=== PATIENT | male | born 1955 | race Caucasian/White ===

== ENCOUNTER 2018-06-17 16:12 | Emergency (ER) | payer OTHER, SELFPAY ==
[2018-06-17 16:18] VITALS: BP 128/75; PULSE 77; RESP 20; TEMP 37.4; O2SAT 99; BMI 26.9
--- NOTE | 2018-06-17 18:56 | DI.RAD.S_ITS ---
PROCEDURE: XR ACUTE ABDOMEN SERIES INDICATIONS: Abdominal pain, no BM x4 days, s/p hip sx TECHNIQUE: One view chest and two views of the abdomen were acquired. COMPARISON: [facility], , CHEST 2 VIEW, 08/17/2015, 14:50. FINDINGS: Surgical changes and devices: There is a hip prosthesis partially visualized. Chest: Lungs are clear. Heart size is normal. No pleural effusions. No pneumoperitoneum. Abdomen: Bowel gas pattern is within normal limits with intraluminal gas demonstrated in the small and large bowel. There is mild stool distention in the rectum. No suspicious calcifications. Bones: No suspicious bony lesions. IMPRESSION: 1. No definite evidence of bowel obstruction. 2. Mild stool distention in the rectum may reflect mild impaction or constipation. Dictated by: Madhu Lezama M.D. on 06/17/2018 at 19:38 Approved by: Madhu Lezama M.D. on 06/17/2018 at 19:40
[2018-06-17 20:02] LABS: Add Manual Diff / Slide Review NO; Basophils Percent Auto 0.3 % (0-2); Eosinophils Percent Auto 0.3 % (2-4); Hematocrit 31.7 % (41-53); Hemoglobin 10.9 g/dL (13.5-17.5); Lymphocytes Percent Auto 8.5 % (25-40); Mean Corpuscular HGB Conc 34.3 % (30-36); Mean Corpuscular Hemoglobin 31.3 PG (26-34); Mean Corpuscular Volume 91.2 fL (80-100); Monocytes Percent Auto 9.6 % (3-14); Neutrophils Absolute Auto 8700 /uL (3000-5900); Neutrophils Percent Auto 81.3 % (50-75); Platelet Count 260 X10^3/uL (150-400); Red Blood Cell Count 3.48 X10^6/uL (4.5-5.9); White Blood Cell Count 10.6 X10^3/uL (4.5-11.0)
[2018-06-17] MEDS: SODIUM CHLORIDE 0.9% 1,000 ML 1000 ML IV (20:03)
[2018-06-17] MEDS: ACETAMINOPHEN 325 MG TABLET 650 MG PO (20:04)
[2018-06-17 20:15] LABS: BUN Creatinine Ratio 12.9 (6-22); Blood Urea Nitrogen 9 mg/dL (9-20); Calcium 8.9 mg/dL (8.4-10.2); Carbon Dioxide 29 mmol/L (22-32); Chloride 98 mmol/L (98-107); Estimated Glomerular Filt Rate > 60.0 mL/min (>60); Glucose 119 mg/dL (80-110); HEMOLYSIS < 15 (0-50); Potassium 3.9 mmol/L (3.4-5.1); Sodium 133 mmol/L (137-145)
--- NOTE | 2018-06-17 20:18 | ED_ITS ---
HPI - Abdominal Pain General Chief Complaint: Abdominal Pain Stated Complaint: SEVERE ABD PAIN Time Seen by Provider: 06/17/18 18:02 Source: patient and family Mode of arrival: ambulatory Limitations: no limitations History of Present Illness HPI narrative: 63-year-old male presents to the emergency department with multiple family members in the chief complaint of significant discomfort in his abdomen. He had surgery on his right hip a few days ago and has not had a normal bowel movement since discharge. He did pass some very small hard stool today after taking some [id number]-[id number] Ex-Lax. He admits to taking pain medicine and denies the use of any laxatives at home in an ongoing fashion. He has had some nausea but denies any vomiting. He denies any fever or chills. MD complaint: abdominal pain Onset (ago): day(s) Pain Consistency: constant Location: diffuse Severity: severe Quality: cramping and aching Radiation: none Migration to: no migration Relieving factors: nothing Exacerbating factors: nothing Associated symptoms: nausea Treatments prior to arrival: prescription analgesics Related Data Home Medications Medication Instructions Recorded Confirmed aspirin 81 mg tablet,delayed 81 mg PO DAILY 03/23/18 03/23/18 release Allergies Allergy/AdvReac Type Severity Reaction Status Date / Time No Known Drug Allergies Allergy Verified 03/23/18 08:15 Review of Systems Review of Systems All systems reviewed & are unremarkable except as noted in HPI and below Constitutional Denies chills, Denies fever(s), Denies lethargy and Denies weakness Eyes Denies change in vision, Denies eye discharge, Denies irritation and Denies loss of vision ENT Ears, Nose, Mouth, and Throat: Denies change in voice, Denies neck pain and Denies sore throat Cardiovascular Denies chest pain, Denies irregular heart rhythm, Denies lightheadedness, Denies palpitations, Denies dyspnea, Denies dyspnea on exertion and Denies orthopnea Respiratory Denies cough, Denies dyspnea, Denies dyspnea on exertion and Denies wheezing Gastrointestinal Gastrointestinal: Reports abdominal pain, Denies change in bowel habits, Denies diarrhea, Reports nausea and Denies vomiting Genitourinary Denies hematuria, Denies flank pain, Denies urinary incontinence and Denies urinary urgency Musculoskeletal Denies neck pain Integumentary/Breasts Denies pruritus, Denies erythema, Denies rash and Denies wounds Neurologic Denies confusion, Denies loss of vision and Denies weakness Psychiatric Denies anxiety, Denies confusion, Denies depression, Denies homicidal ideation and Denies suicidal ideation Endocrine Denies palpitations Hematologic/Lymphatic Denies easy bruising Allergic/Immunologic Denies wheezing [facility] Social History Smoking Status: Never smoker Exam Narrative Exam Narrative: 63-year-old male obviously uncomfortable, clutching his abdomen Initial Vital Signs Initial Vital Signs: Vital Signs Temperature 99.3 F 06/17/18 16:18 Pulse Rate 77 06/17/18 16:18 Respiratory Rate 20 06/17/18 16:18 Blood Pressure 128/75 H 06/17/18 16:18 Pulse Oximetry 99 06/17/18 16:18 Const General: cooperative, well developed and acute distress Nutritional Appearance: well nourished Orientation: alert, awake, oriented x3 and not confused HENMT Head: normocephalic and atraumatic Ears: external ears normal and TM's normal bilaterally Nose: external nose normal and No nasal discharge Face and sinus: sinuses nontender, face symmetric, no sinus tenderness and No dry mucous membranes Mouth: oral mucosae normal and moist mucous membranes Teeth and gingiva: dentition normal Throat: tonsils normal and uvula midline Neck Neck: normal visual inspection, trachea midline, No lymphadenopathy, No midline deformity and No JVD Lymphatic: No lymphedema Resp Effort & Inspection: normal respiratory effort, able to speak in complete sentences, no respiratory distress and no use of accessory muscles Auscultation: clear to auscultation bilaterally, no rales, no rhonchi and no wheezes Cardio Rate: regular rate Rhythm: regular rhythm Heart Sounds: no click, no gallops, no murmurs and no rubs Pulses: normal peripheral pulses GI Inspection: non-distended Palpation: soft, no hepatosplenomegaly, No guarding, No pulsatile mass and tender Auscultation: hypoactive bowel sounds Back/Spine/Pelvis Back: No CVA tenderness Cervical Spine: cervical ROM normal and No pain with cervical ROM Thoracic/Lumbar Spine: thoracic and lumbar spine normal to inspection Skin General: no rashes or lesions noted, No jaundice and No petechiae Neuro General: alert, oriented x3, gait normal and no focal motor deficits Speech: speech normal Extrem General: full ROM, no clubbing, cyanosis or edema, no pedal edema and no calf tenderness Course Orders Ordered: ED Orders 06/17/18 18:56 XR acute abdomen series Stat 06/17/18 19:52 Basic Metabolic Panel Stat Complete Blood Count AUTO DIFF Stat Discontinued Medications Acetaminophen (Tylenol) 650 mg PO NOW ONE Stop: 06/17/18 19:39 Last Admin: 06/17/18 20:04 Dose: 650 mg Sodium Chloride (Normal Saline 0.9%) 1,000 mls @ 1,000 mls/hr IV BOLUS ONE Stop: 06/17/18 20:37 Last Infusion: 06/17/18 20:39 Dose: 0 mls/hr Admin: 06/17/18 20:03 Dose: 1,000 mls/hr Reevaluation(s) Reevaluation #1: Patient has a large bowel movement after enema. He also has near complete resolution of symptoms Vital Signs - 8 hr 06/17/18 20:44 Pulse Rate 80 Respiratory Rate 20 Blood Pressure 154/81 H Pulse Oximetry 100 MDM - Abdominal Pain Lab Data Result diagrams: 06/17/18 19:52 06/17/18 19:52 Lab Results 06/17/18 06/17/18 Range/Units 19:52 19:52 WBC 10.6 (4.5-11.0) X10^3/uL RBC 3.48 L (4.5-5.9) X10^6/uL Hgb 10.9 L (13.5-17.5) g/dL Hct 31.7 L (41-53) % MCV 91.2 (80-100) fL MCH 31.3 (26-34) PG MCHC 34.3 (30-36) % RDW 14.0 (11.6-14.8) % Plt Count 260 (150-400) X10^3/uL Neut % (Auto) 81.3 H (50-75) % Lymph % (Auto) 8.5 L (25-40) % [place] % (Auto) 9.6 (3-14) % Eos % (Auto) 0.3 L (2-4) % Baso % (Auto) 0.3 (0-2) % Neut # (Auto) 8700 H (1785-4574) /uL Sodium 133 L (137-145) mmol/L Potassium 3.9 (3.4-5.1) mmol/L Chloride 98 (98-107) mmol/L Carbon Dioxide 29 (22-32) mmol/L BUN 9 (9-20) mg/dL Creatinine 0.70 (0.66-1.25) mg/dL Estimated GFR > 60.0 (>60) mL/min BUN/Creatinine Ratio 12.9 (6-22) Glucose 119 H (80-110) mg/dL Calcium 8.9 (8.4-10.2) mg/dL Discharge Plan Departure Patient Disposition: Home Clinical Impression: Constipation Discharge Date/Time: 06/17/18 20:45 Interventions: ED Discharge Assessment Last Done: 06/17/18 20:44 Instructions: DI for Constipation Activity Restrictions/Additional Instructions: *You have been diagnosed with [drug induced constipation ] *What to do: *Take medications as directed *Follow up with your primary care provider in 2-3 days, call for an appointment. Let them know you were seen in the Emergency Department and that we ask that you be seen in follow up *Return to ER if you should have any new, worsening or concerning symptoms , such as [increasing pain, fever over 101 F, persistent vomiting ] *You have been diagnosed with [ abdominal pain due to constipation ] *What to do: *Take over the counter medications as directed: 1. Magnesium Citrate - brings water into your bowel 2. Colace - softens your stool 3. Dulcolax - stiumlates your bowels *Drink plenty of water and eat foods high in fiber Prescriptions: No Action aspirin [Adult Low Dose Aspirin] 81 mg tablet,delayed release (DR/EC) 81 mg PO DAILY RF: 0
--- NOTE | 2018-06-17 20:38 | PC.NURSE ---
pt had massive bowl movement provider aware.
[2018-06-17 20:44] VITALS: BP 154/81; PULSE 80; RESP 20; O2SAT 100
== END 2018-06-17 20:45 | disposition home or self-care (01) ==
PROVIDERS: Emergency Provider Emergency Medicine; PCP Internal Medicine
DX: K59.00 Constipation, unspecified (principal)
CPT/HCPCS: 36591; 74022; 80048; 85025; 96360; 99283; 99284

== ENCOUNTER → 2018-07-16 12:55 | Outpatient (CLI) | payer OTHER, SELFPAY ==
[2018-07-16 13:30] LABS: Appearance Urine UA CLOUDY; Bilirubin Urine UA NEGATIVE (NEGATIVE); Color Urine UA YELLOW; Glucose Urine UA NEGATIVE (Normal); Ketones Urine UA NEGATIVE (NEGATIVE); Leukocyte Esterase Urine UA 1+ (NEGATIVE); Nitrite Urine UA POSITIVE (Negative); Occult Blood Urine UA 1+ (Negative); Protein Urine UA NEGATIVE (Negative); Urobilinogen Urine UA 0.2 E.U./dL (0.2)
[2018-07-16 14:40] LABS: Bacteria Urine Many (>30); RBC Urine 1-5/HPF (0-5/HPF); WBC Urine 10-30/HPF (0-5/HPF)
== END ==
PROVIDERS: PCP Internal Medicine; Visit Provider Family Medicine
DX: Z01.812 Encounter for preprocedural laboratory examination (principal)
CPT/HCPCS: 81003; 81015; 87077; 87086; 87186

== ENCOUNTER → 2018-08-20 08:43 | Outpatient (CLI) | payer OTHER, SELFPAY | PROVIDERS: Visit Provider Physician Assistant | DX: N30.01 Acute cystitis with hematuria (principal) | CPT/HCPCS: 87077; 87086; 87186 ==

== ENCOUNTER → 2018-09-12 10:42 | Outpatient (CLI) | payer OTHER, SELFPAY ==
[2018-09-12 11:05] LABS: Add Manual Diff / Slide Review NO; Basophils Percent Auto 0.7 % (0-2); Eosinophils Percent Auto 4.3 % (2-4); Hematocrit 37.4 % (41-53); Hemoglobin 12.6 g/dL (13.5-17.5); Mean Corpuscular HGB Conc 33.8 % (30-36); Mean Corpuscular Hemoglobin 29.6 PG (26-34); Mean Corpuscular Volume 87.6 fL (80-100); Monocytes Percent Auto 9.4 % (3-14); Neutrophils Absolute Auto 3900 /uL (3000-5900); Neutrophils Percent Auto 63.6 % (50-75); Platelet Count 323 X10^3/uL (150-400); Red Blood Cell Count 4.27 X10^6/uL (4.5-5.9); Red Cell Distribution Width 14.9 % (11.6-14.8); White Blood Cell Count 6.2 X10^3/uL (4.5-11.0)
[2018-09-12 11:24] LABS: Appearance Urine UA CLOUDY; Bilirubin Urine UA NEGATIVE (NEGATIVE); Color Urine UA YELLOW; Glucose Urine UA NEGATIVE (Normal); Ketones Urine UA NEGATIVE (NEGATIVE); Leukocyte Esterase Urine UA 2+ (NEGATIVE); Nitrite Urine UA POSITIVE (Negative); Occult Blood Urine UA 2+ (Negative); Protein Urine UA 1+ (Negative); Urobilinogen Urine UA 0.2 E.U./dL (0.2)
[2018-09-12 11:34] LABS: Bacteria Urine Many (>30); Culture Indicated Urine Specimen Cultured; RBC Urine 5-10/HPF (0-5/HPF); WBC Urine >100/HPF (0-5/HPF)
[2018-09-12 13:59] LABS: Thyroid Stimulating Hormone 1.13 uIU/mL (0.47-4.68)
[2018-09-12 16:23] LABS: Alanine Aminotransferase 26 IU/L (21-72); Albumin 3.9 g/dL (3.5-5.0); Albumin Globulin Ratio 1.4 (1.0-2.8); Alkaline Phosphatase 55 U/L (38-126); Aspartate Aminotransferase 23 IU/L (17-59); BUN Creatinine Ratio 18.8 (6-22); Bilirubin Total 0.3 mg/dL (0.2-1.3); Blood Urea Nitrogen 15 mg/dL (9-20); Calcium 8.9 mg/dL (8.4-10.2); Carbon Dioxide 28 mmol/L (22-32); Chloride 101 mmol/L (98-107); Cholesterol 184 mg/dL (140-199); Estimated Glomerular Filt Rate > 60.0 mL/min (>60); Globulin 2.7 g/dL (1.7-4.1); Glucose 95 mg/dL (80-110); HDL Cholesterol 65 mg/dL (40-60); HEMOLYSIS < 15 (0-50); LDL Cholesterol Calculated 109 mg/dL (<100); Potassium 4.7 mmol/L (3.4-5.1); Sodium 139 mmol/L (137-145); Total Protein 6.6 g/dL (6.3-8.2); Triglycerides 51 mg/dL (35-150)
== END ==
PROVIDERS: PCP Family Medicine; Visit Provider Family Medicine
DX: Z00.00 Encounter for general adult medical examination without abnormal findings (principal); Z13.220 Encounter for screening for lipoid disorders; Z13.29 Encounter for screening for other suspected endocrine disorder
CPT/HCPCS: 36415; 80053; 80061; 81003; 81015; 84443; 85025; 87077; 87086; 87186

== ENCOUNTER → 2019-02-18 08:01 | Outpatient (CLI) | payer OTHER, SELFPAY ==
--- NOTE | 2019-02-18 08:03 | DI.RAD.S_ITS ---
PROCEDURE: XR CHEST 2V INDICATIONS: cough TECHNIQUE: 2 views of the chest were acquired. COMPARISON: [facility], , CHEST 2 VIEW, 08/17/2015, 14:50. FINDINGS: Surgical changes and devices: None. Lungs and pleura: Lungs are clear. No pleural effusions or pneumothorax. Mediastinum: Mediastinal contours are normal. Heart size is normal. Bones and chest wall: No suspicious bony abnormalities. Soft tissues appear unremarkable. IMPRESSION: No acute cardiopulmonary pathology. Dictated by: Edgar Vega M.D. on 02/18/2019 at 9:24 Approved by: Edgar Vega M.D. on 02/18/2019 at 9:24
== END ==
PROVIDERS: PCP Family Medicine; Visit Provider Physician Assistant
DX: R05 Cough (principal)
CPT/HCPCS: 71046

== ENCOUNTER → 2020-08-17 09:35 | Outpatient (CLI) | payer MEDICARE, SELFPAY ==
[2020-08-17 10:11] LABS: Add Manual Diff / Slide Review NO; Basophils Absolute Auto 0 /uL (0-100); Eosinophils Absolute Auto 200 /uL (0-450); Eosinophils Percent Auto 6.3 % (2-4); Hematocrit 40.1 % (41-53); Hemoglobin 13.8 g/dL (13.5-17.5); Lymphocytes Absolute Auto 1200 /uL (1100-4500); Lymphocytes Percent Auto 33.3 % (25-40); Mean Corpuscular HGB Conc 34.5 % (30-36); Mean Corpuscular Hemoglobin 31.6 PG (26-34); Mean Corpuscular Volume 91.7 fL (80-100); Monocytes Absolute Auto 300 /uL (0-900); Monocytes Percent Auto 9.8 % (3-14); Neutrophils Absolute Auto 1800 /uL (1500-7000); Neutrophils Percent Auto 49.6 % (50-75); Platelet Count 256 X10^3/uL (150-400); Red Blood Cell Count 4.37 X10^6/uL (4.5-5.9); Red Cell Distribution Width 13.8 % (11.6-14.8); White Blood Cell Count 3.6 X10^3/uL (4.5-11.0)
[2020-08-17 10:28] LABS: Alanine Aminotransferase 21 IU/L (<50); Albumin 4.1 g/dL (3.5-5.0); Albumin Globulin Ratio 1.5 (1.0-2.8); Alkaline Phosphatase 46 U/L (38-126); Aspartate Aminotransferase 31 IU/L (17-59); BUN Creatinine Ratio 23.5 (6-22); Bilirubin Total 0.9 mg/dL (0.2-1.3); Blood Urea Nitrogen 16 mg/dL (9-20); Calcium 8.8 mg/dL (8.4-10.2); Carbon Dioxide 29 mmol/L (22-32); Chloride 103 mmol/L (98-107); Cholesterol 211 mg/dL (140-199); Estimated Glomerular Filt Rate > 60.0 mL/min (>60); Globulin 2.8 g/dL (1.7-4.1); Glucose 106 mg/dL (80-110); HDL Cholesterol 69 mg/dL (40-60); HEMOLYSIS < 15 (0-50); LDL Cholesterol Calculated 129 mg/dL (<100); Potassium 4.4 mmol/L (3.4-5.1); Sodium 135 mmol/L (137-145); Total Protein 6.9 g/dL (6.3-8.2); Triglycerides 65 mg/dL (35-150)
[2020-08-17 10:54] LABS: Prostate Specific Antigen 0.109 ng/mL (0.10-4.00)
== END ==
PROVIDERS: PCP Internal Medicine; Referring Provider Internal Medicine; Visit Provider Internal Medicine
DX: E78.2 Mixed hyperlipidemia (principal); R03.0 Elevated blood-pressure reading, without diagnosis of hypertension; D70.9 Neutropenia, unspecified; Z12.5 Encounter for screening for malignant neoplasm of prostate
CPT/HCPCS: 36415; 80053; 80061; 84153; 85025; G0103

== ENCOUNTER → 2020-11-13 12:36 | Outpatient (CLI) | payer MEDICARE, SELFPAY ==
[2020-11-13] MEDS: COVID-19 VACC(MODERNA-1)/PF 100 MCG/0.5 ML VIAL IM (12:42)
== END ==
PROVIDERS: PCP Internal Medicine; Visit Provider Internal Medicine
DX: Z23 Encounter for immunization (principal)
CPT/HCPCS: 0011A; 91301

== ENCOUNTER → 2020-12-11 14:13 | Outpatient (CLI) | payer MEDICARE, SELFPAY ==
[2020-12-11] MEDS: COVID-19 VACC #2, MRNA(MOD) 100 MCG/0.5 ML VIAL IM (14:18)
== END ==
PROVIDERS: PCP Internal Medicine; Visit Provider Internal Medicine
DX: Z23 Encounter for immunization (principal)
CPT/HCPCS: 0012A; 91301

== ENCOUNTER → 2021-10-26 07:16 | Outpatient (CLI) | payer MEDICARE, SELFPAY ==
[2021-10-26 09:23] LABS: COVID19 -Nasal RAPID Negative (Negative)
== END ==
PROVIDERS: PCP Internal Medicine; Visit Provider Physician Assistant
DX: Z20.822 Contact with and (suspected) exposure to COVID-19 (principal)
CPT/HCPCS: 87635